=== PATIENT | female | born 1990 | race Caucasian/White ===

== ENCOUNTER → 2023-03-03 | Outpatient (CLI) | payer OTHER ==
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
== END ==
LOC: 3 N SLEEP 13:29
PROVIDERS: ATTEND Internal Medicine Critical Care Medicine
DX: G47.10 Hypersomnia, unspecified (principal); G47.419 Narcolepsy without cataplexy
CPT/HCPCS: 99211

== ENCOUNTER 2023-04-12 19:29 | Outpatient (CLI) | payer OTHER ==
[2023-04-13 12:40] LABS: Urine Alcohol Negative (Negative)
[2023-04-13 12:41] LABS: Urine Barbiturate Negative (Negative); Urine Cocaine Negative (Negative); Urine Methadone Negative (Negative); Urine Opiates Negative (Negative); Urine Phencyclidine Negative (Negative)
--- NOTE | 2023-04-17 18:59 | SLS ---
SLEEP STUDY STUDY PERFORMED: MSLT. Note that this MSLT followed a full night polysomnography, during which the patient received more than 6 hours of sleep. The patient was given a total of 5 naps. The MSLT protocol was followed and the electrographic variables included EEG, EOG, EMG, and EKG. The patient also monitored throughout five 20-minute naps at 2-hour intervals. For each nap, the patient was allowed 20 minutes to fall asleep. Once asleep, the patient was awakened after 15 minutes. In between naps, the patient was kept as alert as possible. A sleep latency of 20 minutes indicated that there was no sleep occurring. RESULTS: The patient was given a total of 5 naps. The patient achieved sleep in all 5 naps. The sleep latency for nap #1 was 3 minutes, nap #2 was 2.5 minutes, nap #3 was 3.5 minutes, nap #4 was 2.5 minutes and nap #5 was 1.0 minutes. The mean sleep latency for 5 naps was 2.5 minutes. The patient also encountered 2 REM onset sleeps, which included nap #1 and nap #2. The patient also had a very short REM latency on her original polysomnography. ASSESSMENT: This patient's multiple sleep latency test is consistent with narcolepsy. The patient has a mean sleep latency of 2.5 minutes and she had 2 REM onset sleep, and she has chronic unexplained hypersomnia along with sleep paralysis and some hallucinations without cataplexy. Findings are highly suspicious for type 2 narcolepsy. PLAN: The patient will be asked to come into the office to have a discussion with me regarding treatment options for narcolepsy and further recommendations are to follow. MMODL / IJN: [id number] /
--- NOTE | 2023-04-20 07:34 | SLS ---
SLEEP STUDY This is a polysomnography report. HISTORY: This is a 32-year-old female patient, who was seen in the sleep center due to excessive hypersomnia. The patient has an Santo score of 19. The patient has been having issues with hypersomnia since young age. This has been going on since her school years. Her performance in school has been affected. Her functionality has been affected because of chronic tiredness and sleepiness. She has noted episodes where she cannot move while waking up from sleep and obviously this raised the concern for sleep paralysis. This has been occurring once a month. She also has had hallucinations upon arousal with vivid dreams. No history of any substance abuse. No family history of narcolepsy. No clear-cut history of cataplexy at this point in time. No recent weight gain. PERTINENT PHYSICAL FINDINGS: Height is 5 feet 3 inches, weight is 130 pounds, BMI is 23.0. TECHNICAL DESCRIPTION: SLEEP ARCHITECTURE: The total sleep time was 424.5 minutes. The total time in bed was 462.5 minutes. The sleep efficiency was 91.8%. The latency to sleep onset was 9.5 minutes. The latency to REM sleep was 34.0 minutes. The sleep architecture was characterized by 1.3% stage I, 46.9% stage II, 22.4% stage III, and 29.4% REM sleep. Total arousal index was 2.1. The wake after sleep onset time was 27 minutes. RESPIRATORY ANALYSIS: The patient had no obstructive apneas, no mixed apneas, no central apneas, and no obstructive hypopneas. The resulting AHI was 5.0. OXYGENATION ANALYSIS: No evidence of any nocturnal oxygen desaturation. The patient was able to maintain a pulse ox of above 90% throughout the sleep study. The lowest encountered pulse ox was 94%. CARDIAC SUMMARY: Average heart rate was 88, minimum heart rate was 83, maximum heart rate was 93. PERIODIC LIMB MOVEMENT ACTIVITY: None. Zero periodic limb movement activity was encountered. SLEEP CONTINUITY SUMMARY: There were a total of 15 arousals with an index of 2.1. The respiratory arousal index was 0. ASSESSMENT: This current polysomnography does not indicate any major abnormalities to explain the patient's chronic hypersomnia. No evidence of any sleep breathing disorder. No evidence of any sleep fragmentation. No evidence of any nocturnal oxygen desaturation. Of concern is the early REM onset in this patient and the REM latency was 34 minutes. PLAN: Proceed with secondary MSLT. MMODL / IJN: [id number] /
== END 2023-04-13 16:50 | disposition home or self-care (01) ==
LOC: 3 N SLEEP 19:29
PROVIDERS: ATTEND Internal Medicine Critical Care Medicine
DX: G47.10 Hypersomnia, unspecified (principal); G47.53 Recurrent isolated sleep paralysis; R44.3 Hallucinations, unspecified
CPT/HCPCS: 80306; 95805; 95810

== ENCOUNTER → 2023-04-21 | Outpatient (CLI) | payer OTHER ==
--- NOTE | 2023-04-21 15:31 | P.PN ---
Progress Note - Text Progress Note Date: 04/21/23 On 04/21/2023, the patient is coming in to discuss the results of the sleep study. As mentioned, the patient presented with excessive hypersomnia and sleepiness and the patient had an Montara score of 19. There was no clear indication for underlying sleep breathing disorder. The clinical presentation was concerning for narcolepsy. The patient reported poor performance, poor functionality, she also had sleep paralysis and hallucinations and vivid dreams. No reported cataplexy. Based on that, the patient was given a PSG and the. She was completed on 04/12/2023 and the patient was found to have no obstructive apneas or hypopneas and her AHI was 0. No oxygen desaturations. The REM latency was 34 minutes. The patient had a 29% REM sleep and the rest of the sleep architecture showed a 46.9% stage II and 22.4% stage III sleep and a total of 1.3% stage I sleep. The patient had no issues with restless leg. No frequent arousals. The arousal index was low. The patient was given the second day MSLT and the patient was given a total of 5 naps, the patient was able to generate sleeping all of those naps and the mean sleep latency for a total of 5 naps was 2.5 minutes. The patient had 2 REM onset sleep. Based on all this, the patient stated to criteria for narcolepsy. BP is 120/72, pulse is 100, respirations 16, weight is 130 pounds, height is 5 feet and 3 inches. Temperature is 98.8 degrees. The patient appeared well nourished and normally developed. Vital signs as documented. Head exam is unremarkable. No scleral icterus or corneal arcus noted. Neck is without jugular venous distension, thyromegaly, or carotid bruits. Carotid upstrokes are brisk bilaterally. Lungs are clear to auscultation and percussion. Cardiac exam reveals the PMI to be normally sized and situated. Rhythm is regular. First and second heart sounds normal. No murmurs, rubs or gallops. Abdominal exam reveals normal bowel sounds, no masses, no organomegaly and no aortic enlargement. Extremities are nonedematous and both femoral and pedal pulses are normal.Examination of the skin revealed no evidence of significant rashes, suspicious appearing nevi or other concerning lesions.Neurologically, the patient is awake and alert and the patient does not have any focal neurological deficit. Cranial nerves are essentially intact. Assessment Type II narcolepsy, without cataplexy. The patient has a nasal sleep latency of 2.5 minutes with 2 REM onset sleep on MSLT and the patient fits the criteria for narcolepsy. Chronic hypersomnia, affecting her functionality on daytime performance Episodes of sleep paralysis and dreams and hallucinations Plan Discussed findings with the patient. Obviously, the patient had narcolepsy. I went over the pharmacotherapy that's available for treatment of narcolepsy. I started off by discussing the effects of Xywave , and effective treatment for narcolepsy, and after stating the mode of administration and the side effect profile, the patient opted not to start with this medication. I subsequently discussed other stimulant agent including modafinil, armodafinil, conventional stimulant such as methylphenidate and amphetamine-based medication. I also discussed newer stimulant agents such as Solriamfetol (Sunosi) and pitolisant (Wakix). After having a lengthy discussion, we decided to proceed with was definitely less than I decided to start her on a dose of 200 mg twice a day as the patient is quite symptomatic from her disease. The patient has an IUD and this is her main mode of contraception. She was encouraged to take planned Naps or scheduled scheduled napping can help people cope with daytime drowsiness. After a brief period of sleep, most people with narcolepsy wake up refreshed. Planned naps can heighten alertness at whiting parts of the day and prevent them from falling asleep involuntarily. A quick nap may be beneficial before situations requiring alertness, especially driving. Good sleep hygiene, which involves daily habits as well as the sleep environment, can make it easier to sleep well at night. Practical tips to improve sleep routines for people with narcolepsy include: Keep a consistent bedtime and wake time: A stable sleep schedule can ensure that enough time is budgeted for rest and helps habituate the body to sleeping at set times, including at night. Avoid alcohol and sedatives: Alcohol and many other substances with a sedating effect interfere with sleep cycles and negatively affect sleep quality. Daytime use of these substances can also worsen EDS. Avoid caffeine late in the day: Caffeine can linger in the body for hours and has a stimulant effect that can disrupt nighttime sleep. Create a sleep-friendly bedroom We'll continue to follow.
== END ==
LOC: 3 N SLEEP 14:23
PROVIDERS: ATTEND Internal Medicine Critical Care Medicine
DX: G47.419 Narcolepsy without cataplexy (principal); G47.9 Sleep disorder, unspecified
CPT/HCPCS: 99212